=== PATIENT | male | born 1995 | race Caucasian/White ===

== ENCOUNTER 2018-10-28 10:26 | Emergency (ER) | payer OTHER ==
[~2018-10-28] VITALS: Ht 188 cm; Wt 73.0 kg
[~2018-10-28 10:26] MED LIST: ALPR-475 PO; WARF6TAB PO
[2018-10-28] MEDS ORDERED: ONDANSETRON ODT 4 MG PO ONE (11:00)
[2018-10-28] MEDS ORDERED: ONDANSETRON ODT 4 MG ONE (11:02)
[2018-10-28 11:27] VITALS: BP 128/80
== END 2018-10-28 11:29 | disposition home or self-care (01) ==
LOC: ED 11:28
DX: K92.0 Hematemesis (principal); K22.6 Gastro-esophageal laceration-hemorrhage syndrome
CPT/HCPCS: 99283; Q0162

== ENCOUNTER 2018-12-01 07:01 | Day surgery (SDC) | payer OTHER ==
[~2018-12-01] VITALS: Ht 188 cm; Wt 73.3 kg
[2018-12-01 07:30] VITALS: BP 122/83
== END 2018-12-01 10:50 | disposition home or self-care (01) ==
LOC: OUT 07:01
PROVIDERS: ATTEND Internal Medicine Gastroenterology
DX: K51.20 Ulcerative (chronic) proctitis without complications (principal); K29.50 Unspecified chronic gastritis without bleeding; F41.9 Anxiety disorder, unspecified; I45.10 Unspecified right bundle-branch block; G43.909 Migraine, unspecified, not intractable, without status migrainosus; Z72.89 Other problems related to lifestyle; Z79.01 Long term (current) use of anticoagulants; Z79.899 Other long term (current) drug therapy; Z87.891 Personal history of nicotine dependence; Z86.711 Personal history of pulmonary embolism; Z98.890 Other specified postprocedural states; Z83.71 Family history of colonic polyps
CPT/HCPCS: 43239; 45380; 88305; J2704; J7120; J3010

== ENCOUNTER → 2020-02-07 | Outpatient (CLI) | payer OTHER ==
[~2020-02-07] MED LIST changes: -ALPR-475 PO; +ALPR0.5T7 PO; +MESA1.2T PO; +MOME13HF2 INH; +OLOP2.5D5 EACHEYE; +TRET40CR6 TP
== END | disposition home or self-care (01) ==
LOC: RAD 10:55
PROVIDERS: ATTEND Internal Medicine Cardiovascular Disease
DX: I26.99 Other pulmonary embolism without acute cor pulmonale (principal); R94.31 Abnormal electrocardiogram [ECG] [EKG]
CPT/HCPCS: 71045; 78582; A9540; A9558

== ENCOUNTER → 2020-02-19 | Outpatient (CLI) | payer OTHER | END | disposition home or self-care (01) | LOC: CFH 06:57 | PROVIDERS: ATTEND Internal Medicine Cardiovascular Disease | DX: I11.9 Hypertensive heart disease without heart failure (principal); I26.99 Other pulmonary embolism without acute cor pulmonale; R94.31 Abnormal electrocardiogram [ECG] [EKG] | CPT/HCPCS: 93306; 93356 ==

== ENCOUNTER → 2020-09-18 | Outpatient (CLI) | payer OTHER | END | disposition home or self-care (01) | LOC: CARD 08:55 | PROVIDERS: ATTEND Registered Nurse | DX: I10 Essential (primary) hypertension (principal); R07.89 Other chest pain | CPT/HCPCS: 93017 ==